=== PATIENT | male | born 1995 | race Caucasian/White ===

== ENCOUNTER 2017-11-29 18:56 | Emergency (ER) | payer OTHER ==
[2017-11-29 19:07] VITALS: BP 140/72
[2017-11-29] MEDS ORDERED: diphenhydrAMINE 25 MG CAPSULE PO STA (19:12)
--- NOTE | 2017-11-29 19:15 | ED Physician Documentation ---
PD HPI SKIN - Stated complaint Stated Complaint: ITCHY BODY - Chief complaint Chief Complaint: Wound - History obtained from History obtained from: Patient - History of Present Illness Timing - onset: Other (After traveling to [place] on deployments where he was in [place] housing he developed body wide itching especially on the hands and trunk. There is a fine rash there. His has something similar.) Review of Systems Constitutional: denies: Fever, Chills Throat: reports: Reviewed and negative GI: denies: Abdominal Pain, Nausea, Vomiting PD PAST MEDICAL HISTORY - Past Medical History Past Medical History: No - Past Surgical History Past Surgical History: Yes General: Appendectomy - Present Medications Home Medications: Ambulatory Orders Medication Instructions Recorded Confirmed Permethrin [Elimite] 60 gm TP ONCE #2 cream..g. 11/29/17 - Allergies Allergies/Adverse Reactions: Allergies Allergy/AdvReac Type Severity Reaction Status Date / Time No Known Drug Allergies Allergy Verified 11/29/17 19:07 - Social History Does the pt smoke?: No Smoking Status: Never smoker Does the pt drink ETOH?: No Does the pt have substance abuse?: No - Immunizations Immunizations are current?: Yes PD ED PE NORMAL - Vitals Vital signs reviewed: Yes - General General: Alert and oriented X 3, No acute distress - Derm Derm: Other (There is a fine rash that is most consistent with scabies in the wrist flexor creases, the web spaces of the hands and on the trunk.) - Neuro Neuro: Alert and oriented X 3, Normal speech Results - Vitals Vitals: Vital Signs - 24 hr 11/29/17 19:04 Temperature 36.2 C L Heart Rate 89 Respiratory 16 Rate Blood Pressure 140/72 H O2 Saturation 97 Oxygen O2 Source Room air Departure - Departure Disposition: 01 Home, Self Care Clinical Impression: Scabies Condition: Good Record reviewed to determine appropriate education?: Yes Instructions: ED Scabies Prescriptions: Permethrin [Elimite] 60 gm TP ONCE #2 cream..g. Comments: [id number] Benadryl as needed for itching. Return for new or worsening symptoms. [place] Your blood pressure was elevated today on check into the emergency department. This does not mean that you have hypertension, it is a common phenomenon to come to the emergency department and have elevated blood pressure. I recommend that you see your primary care physician within the week to have it rechecked when you are feeling better.
== END 2017-11-29 19:22 | disposition home or self-care (01) ==
LOC: ED 18:56
DX: B86 Scabies (principal); R03.0 Elevated blood-pressure reading, without diagnosis of hypertension
CPT/HCPCS: 99282; 99283; A9270

== ENCOUNTER 2018-12-15 12:06 | Outpatient (CLI) | payer OTHER ==
--- NOTE | 2018-12-16 08:45 | MRI Report ---
Reason: LT KNEE PAIN Procedure Date: 12/15/2018 Accession Number: [id number] / [id number] Procedure: MRI - Knee LT W/O CPT Code: Final Report FULL RESULT: EXAM: LEFT KNEE MRI WITHOUT CONTRAST EXAM DATE: 12/15/2018 12:58 PM. CLINICAL HISTORY: Left knee pain. COMPARISON: None. TECHNIQUE: Multiplanar, multisequence T1-weighted and fluid-sensitive sequences of the knee without contrast. Other: None. FINDINGS: Bones: Focal marrow edema anterior aspect lateral tibial plateau. Mild marrow edema mid lateral femoral condyle. Articular Cartilage: Unremarkable. Medial Meniscus: The medial meniscus is intact. Lateral Meniscus: The lateral meniscus is intact. Cruciate Ligaments: Normal thickness and low signal posterior cruciate ligament. Possible partial interstitial tear anterior cruciate ligament. Collateral Ligaments: The medial collateral and lateral collateral ligamentous structures are intact. Tendons: The quadriceps, patellar, semimembranosus, and popliteus tendons are unremarkable. Musculature: No edema or fatty atrophy. Other: Small quantity of fluid patellar recesses. No popliteal cyst. No loose bodies. The medial and lateral retinacula are intact. The subcutaneous tissues and fat pads are unremarkable. IMPRESSION: 1. Negative for meniscus tear. 2. Possible partial interstitial tear anterior cruciate ligament. 3. Mild marrow edema mid lateral femoral condyle and mild marrow edema anterior aspect lateral tibial plateau. RADIA
== END 2018-12-15 12:07 | disposition home or self-care (01) ==
LOC: DI 12:06
DX: M25.562 Pain in left knee (principal); M25.462 Effusion, left knee

== ENCOUNTER 2018-12-31 08:31 | Day surgery (SDC) | payer OTHER ==
[2018-12-31] MEDS ORDERED: DEXAMETHASONE 4 MG/ML VIAL IVP ONE (08:32)
[2018-12-31] MEDS ORDERED: fentaNYL 100 MCG/2 ML VIAL IVP ONE (08:32)
[2018-12-31] MEDS ORDERED: MIDAZOLAM 2 MG/2 ML VIAL IVP ONE (08:32)
[2018-12-31] MEDS ORDERED: GLYCOPYRROLATE 1 MG/5 ML VIAL IVP ONE (08:32)
[2018-12-31] MEDS ORDERED: PROPOFOL 200 MG/20 ML VIAL IVP ONE (08:32)
[2018-12-31] MEDS ORDERED: CEFAZOLIN SODIUM IN 0.9 % NACL 2 GM/100 ML BAG IV ONE (09:15)
[2018-12-31] MEDS ORDERED: LACTATED RINGERS 1,000 ML IV ONE ×4 (09:26→15:55)
--- NOTE | 2018-12-31 09:34 | ANESTHESIA ---
Pre-Anesthesia VS, & Labs - Diagnosis left knee pain - Procedure left knee arthroscopy, possible ACL repair Vital Signs: Temp Pulse Resp BP Pulse Ox 36.3 C L 64 16 139/83 H 100 12/31/18 09:03 12/31/18 09:03 12/31/18 09:03 12/31/18 09:03 12/31/18 09:03 Height 5 ft 6 in Weight (kg) 77.11 kg Body Mass Index 28.2 - NPO >8 hours Home Medications and Allergies Home Medications: Ambulatory Orders No Known Home Medications 12/27/18 No Known Home Medications 12/27/18 Allergies/Adverse Reactions: Allergies Allergy/AdvReac Type Severity Reaction Status Date / Time No Known Drug Allergies Allergy Verified 12/27/18 15:38 Anes History & Medical History - Anesthetic History Anesthesia Complications: reports: No previous complications - Medical History Cardiovascular: reports: None Pulmonary: reports: None Gastrointestinal: reports: None Urinary: reports: None Musculoskeletal: reports: Other Endocrine/Autoimmune: reports: None Skin: reports: None Smoking Status: Never smoker - Surgical History General: Appendectomy Exam General: Alert Dental: WNL Mouth Opening: Greater than 4 Fingerbreadths Mallampati classification: I Thyromental Distance: greater than 6 cm Respiratory: Lungs clear Cardiovascular: Regular rate, Normal S1, Normal S2 Mental/Cognitive Status: Alert/Oriented X3 Plan Anesthesia Type: General Consent for Procedure(s) Verified and Reviewed: Yes Code Status: Attempt Resuscitation ASA classification: 1-Healthy patient Is this case an emergency?: No
[2018-12-31] MEDS ORDERED: BUPIVACAINE 0.25% PF 30 ML VIAL ONE (10:18)
[2018-12-31] MEDS ORDERED: EPINEPHrine 1 MG/ML AMP ONE (10:18)
--- NOTE | 2018-12-31 14:13 | XRAY Report ---
Reason: CONFIRM ACL GRAFT PLACEMENT Procedure Date: 12/31/2018 Accession Number: [id number] / [id number] Procedure: XR - Knee 2 View LT CPT Code: Final Report FULL RESULT: EXAM: LEFT KNEE RADIOGRAPHY EXAM DATE: 12/31/2018 01:37 PM. CLINICAL HISTORY: Confirm ACL graft placement. COMPARISON: None. TECHNIQUE: Single AP view. FINDINGS: Bones: A bone anchor projects near the left distal femoral metadiaphysis with osseous lucency in the proximal tibia consistent with ACL graft. Joints: Normal. No effusion. No subluxations. Soft Tissues: Soft tissue swelling and gas are consistent with the immediate postoperative period. IMPRESSION: Expected postoperative appearance. RADIA
[2018-12-31] MEDS ORDERED: oxyCODONE 5 MG TABLET PO PRN (15:14)
[2018-12-31] MEDS ORDERED: ONDANSETRON 4 MG/2 ML VIAL IVP PRN (15:14)
[2018-12-31] MEDS ORDERED: HYDROmorphone 0.5 MG/0.5 ML SYRINGE ONE (15:33)
--- NOTE | 2018-12-31 15:41 | OPERATIVE REPORT ---
Operative Report - General Procedure Date: 12/31/18 - Other Other Information/Narrative: Date of Procedure: 31 DEC 2018 Planned Procedure: Left knee diagnostic arthroscopy possible left anterior cruciate ligament reconstruction with hamstring autograft Pre-op diagnosis: Left knee pain and instability, possible ACL tear Procedure performed: Left knee diagnostic arthroscopy, left anterior cruciate ligament reconstruction with hamstring autograft Post-op diagnosis: Left anterior cruciate ligament tear Primary Surgeon: MANNY PEÑA Secondary Surgeon: RAYRAY Anesthesia: General LMA, plus regional EBL: 50 ml Tourniquet time #1: 49 minutes left thigh. Tourniquet down time: 33 minutes. Tourniquet time #2: 114 minutes left thigh. Implants: Femur: Arthrex BTB tight rope utilized in tightrope RT fashion Tibia: Arthrex 9 mm graft bolt Indication For Surgery: The 23-year-old male who is approximately 2-1/2 months status post injury to the left knee, he has had continued pain and some subjective instability. His exam and MRI were somewhat equivocal for ACL injury. He had guarding with Khadijah and attempted pivot shift testing, and on his MRI there was some increased T2 signal within the ACL, and the ACL fibers appeared to sag below parallel to Blumensaat's line however he had no pivot shift (likely due to guarding) in clinic and an equivocal endpoint (also likely due to guarding and also possibly due to scarring of the [place] ACL to the PCL and roof of the notch We discussed treatment options to include nonoperative management, with rehabilitation, with the need for possible operative intervention should he have persistent pain and instability versus diagnostic arthroscopy with possible ACL reconstruction if the ACL is torn at the time of arthroscopy. We discussed the potential for a negative arthroscopy, with no further treatment other than a diagnostic arthroscopy rendered as well as the projected recovery timeline should an ACL reconstruction be required. We discussed the risks, benefits, and alternatives. Risks include pain, bleeding, infection, damage to nearby structures and cartilage, implant complications, implant failure, persistent stiffness, need for extensive rehabilitation, posttraumatic arthritis, lack of symptom relief, need for further surgery, DVT, PE, stroke, and . Following our discussion he desired to proceed with the plan as proposed. Written consent was obtained. Examination Under Anesthesia: ROM equal to the contralateral side. Stable/symmetric dial at 30 & 90 degrees. Stable to varus and valgus stressing at 0 & 30 degrees. 2B Khadijah. Pivot glide with Pivot shift. No mechanical sensation Diagnostic Arthroscopy: No loose bodies. Synovium normal. Patella cartilage grossly normal. Trochlear cartilage normal-appearing. Medial femoral condyle cartilage normal. Medial tibial plateau cartilage normal. Medial meniscus, meniscal root intact, no medial meniscal tears appreciated. ACL was avulsed from its femoral origin, part of it had scarred to the roof of the notch and to the PCL, part had flipped forward and scarred anteriorly above the intermeniscal ligament. PCL was stable to probing. Lateral femoral condyle cartilage normal. Lateral tibial plateau cartilage normal. Lateral meniscus, meniscal root with mild fraying, otherwise stable to probing. No lateral meniscal tear is appreciated. Procedure in Detail: The patient was met in the pre-operative hold area on the day of the procedure. The operative extremity was signed and questions were answered. A regional block was placed by the anesthesia team. The patient was brought to the operating room and a general anesthetic was administered. Supine position was used and bony prominences were padded. An examination under anesthesia was performed. Standard prepping and draping was performed. A time out confirmed patient identification, laterality, procedure, allergies, antibiotics, and images. A standard diagnostic arthroscopy of the knee was performed through anterolateral and anteromedial portal sites. The anteromedial portal was created under direct visualization after localizing with a spinal needle. The findings can be found above. After confirming incompetence of the anterior cruciate ligament, I used a sucker shaver and a radiofrequency ablation wand to release all residual ACL tissue off of the lateral wall. I debrided all excess tissue from the notch. I placed the camera into the anteromedial portal and ensured that I was cleared all the way to the back wall. I then proceeded to the hamstring graft harvest. A 6 cm incision was made over the insertion of the pes anserine. Hemostasis was obtained with electrocautery. Dissection was brought down to the sartorial fascia and this was cleared off with a sponge. A partial thickness incision was made in the sartorial fascia proximal to and in line with the gracilis tendon, taking care to not disrupt the superficial medial collateral ligament. A full thickness longitudinal incision was made down to bone, releasing the pes anserine. I then identified the interval between the hamstring tendons and the medial collateral ligament. This interval was exploited and the hamstrings were viewed on the underside of the sartorial fascia. A right angle clamp was used to separate the gracilis tendon from the sartorial fascia and it was released sharply with a knife. I then whip stitched the tendon with a fiberloop. I then freed the tendon from all fascial attachments back to the hiatus. The procedure was repeated for the semitendinosis tendon. A closed tendon stripper was then used to harvest the gracilis and semitendinosus tendons and they were brought to the back table. The tibial incison was packed with a wet raytec and the tourniquet was deflated duirng graft preperation. The graft was then prepped on the back table. Following graft preparation, the graft was doubled over an umbilical tape and sized. It was found to pass snugly through an 8 mm sizer, but would not pass through a 7.5 mm sizer. The graft was then tensioned on the graft tensioner and wrapped in a saline soaked Ray- Sukhi. I turned my attention back to the knee. The left leg was again exsanguinated using Esmarch bandage, and the tourniquet was again raised to 250 mmHg after having been down for 33 minutes. Clot was irrigated from the knee and then I placed the camera into the anteromedial portal and again ensured that I was cleared all the way to the back wall. I then brought the flip cutter aiming device through the lateral portal. I positioned into the central position of the [place] ACL footprint on the femur ensuring to leave a 2 mm back wall and stay off of the distal articular cartilage. Once satisfied with the position, the bullet was brought down to the skin and a ny was made. A 3 cm longitud inal skin incision was made and the IT band was split in line with its fibers. A radha rake was used to retract the IT band and the bullet was brought down to the lateral femoral wall. A flip cutter3 was then drilled into the notch. It was then opened to 8 mm and rotated by hand, confirming an appropriate position. The bullet was then malleted into place and a 25mm femoral tunnel was drilled. Bony debris was removed with a shaver. A fiberstick suture was brought into the joint, retrieved out the lateral portal, and clamped to itself. I then identified the ACL footprint on the tibia and set the tibial guide at 55. I aimed to have the guide pin come out 7 mm anterior to the PCL and in line with the posterior borders of the anterior horn of the lateral meniscus, on the lateral border of the medial tibial spine. The guidewire was then brought into the joint. The knee was then straightened to confirm that it would not impinge on the notch. The guidewire was clamped with a Gopi. The skin was then protected and the tibial tunnel was drilled with an 8 mm reamer. The fiberwire was then brought through the tibial tunnel. The graft was then loaded onto the tightrope and the graft was marked at 25 mm. 2-0 Vicryl was used to secure the limbs of the graft to each other, locking the tight rope in place. The graft was then passed and the button was brought out of the skin over the lateral femur. I then guided the button back down beneath the IT band. I was able to palpate the button on the lateral femoral cortex, but could not visualize it, therefore the decision was made to obtain an intraoperative flat plate x-ray to confirm button placement and deployment. Flat plate x-ray demonstrated good position of the button on the lateral femoral condyle. I then held tension on the graft and advanced it by pulling on the white tightrope sutures. The marking on the graft disappeared into the femoral tunnel and seated nicely. The knee was then cycled 20 times with tension on the graft. I then placed a large bump under the distal femur while pulling on the graft and placed a posterior drawer on to the proximal tibia. 4 limbs of the graft were tensioned orthogonally, and a nitinol wire was passed retrograde into the joint in the center of the graft limbs. The graft bolt dilators were then sequentially used 6 mm, 7 mm, 8 mm, and 9 mm, with a good tight fit obtained at 9 mm. The dilator was removed and a 9 mm graft bolt was placed with good fixation. A Khadijah was performed and was 1A. The scope was reinserted in the knee and there was no prominent hardware. The tension on the graft was appropriate. There was no notch impingement. The tightrope was checked by retightening, followed by 5 alternating half hitches for backup fixation. The excess limbs of suture and excess graft were then trimmed. The wounds were irrigated with normal saline and we began our closure. The IT band and sartorial fascia was closed with 0 Vicryl suture. Subcutaneous tissues were closed with 2-0 Vicryl. Skin was closed with a running buried 3-0 Monocryl. The wounds were then cleaned and dried, and Mastisol and Steri-Strips were placed. The wounds were then covered with Xeroform. Sterile 4x4 gauze was placed over the incisions followed an ABD and ANGELINE stocking. The surgical drapes were removed. The ROM brace was placed and was locked out in full extension. An additional block was placed by the anesthesia team, and then the patient was awakened and transferred to the recovery room. Postoperative plan: 1. Discharge home from the same day surgery facility once discharge criteria has been met. 2. NWB, knee locked in extension until follow-up. 3. Will follow postoperative hamstring ACL rehabilitation protocol. Anticipate in-line running activities at 4-5 months postop, cutting and pivoting activities at 6 months postop. 4. Return to 7-14 days for wound check. 5. Full strength aspirin 28 days for DVT prophylaxis. 6. Recommend 21 days convalescent leave
[2018-12-31 17:07] VITALS: BP 130/78
== END 2018-12-31 08:32 | disposition home or self-care (01) ==
LOC: SDS 08:31
PROVIDERS: ATTEND Orthopaedic Surgery
PROC: 0LBP0ZZ Excision of Left Lower Leg Tendon, Open Approach (ICD-10-PCS; 2018-12-31)
PROC: 0MRP47Z Replacement of Left Knee Bursa and Ligament with Autologous Tissue Substitute, Percutaneous Endoscopic Approach (ICD-10-PCS; principal; 2018-12-31 10:45)
DX: S83.512A Sprain of anterior cruciate ligament of left knee, initial encounter (principal); X50.1XXA Overexertion from prolonged static or awkward postures, initial encounter; Y93.67 Activity, basketball; Y99.8 Other external cause status